=== PATIENT | male | born 1970 | race Caucasian/White ===

== ENCOUNTER 2017-06-16 20:08 | Emergency (ER) | payer OTHER ==
[~2017-06-16] VITALS: Ht 180.3 cm; Wt 90.9 kg
[2017-06-16 20:39] VITALS: BP 129/91; PULSE 73; RESP 18; O2SAT 99
[2017-06-16] MEDS ORDERED: HYDROmorphone 1 mg/mL Inj IM ONE (22:15)
--- NOTE | 2017-06-16 22:32 | ED.REPORT ---
HPI-Back Pain 40 and Over Date of Service Jun 16, 2017 ED Provider: Dr. Carlson The patient is a 46 year old male with a hx of HTN, and cholecystectomy presenting to the ED complaining of left-sided back spasms onset this morning when he was unloading his 90 pound dog from the car. The patient said that he felt a pop and that he initially only felt sore. At 1700 tonight, the patient claims that his back tightened up for 5 minutes but subsided after he stretched and he just felt sore until 1930 when his back tightened up again and remained. The patient admits that he could not walk or stand up, and the pain has been constant since. He says that the pain is a "cramping" pain and is mainly on the left side of his back, below the "edge of the ribs above the hip." The patient denies ever having back pain like this before, fever, nausea, chills, vomiting, or SOB. Nursing Notes Stated Complaint: SEVERE BACK SPASM'S Chief Complaint: Back Pain or Injury Nursing Notes Reviewed: Yes ([employer], [employer] not reconciled) Allergies: Coded Allergies: No Known Allergies (Unverified Allergy, Unknown, 06/16/17) Scheduled PRN Cyclobenzaprine (Cyclobenzaprine) 5 Mg Tablet 5-10 MG PO TID PRN PRN Spasm Hydrocodone-Acetaminophen 5-325 mg (Hydrocodone-Acetaminophen 5-325 mg) 1 Each Tablet 1-2 TABLET PO Q4H PRN PRN For Pain General Time Seen by MD: 22:32 Chief Complaint Flank pain left Hx Obtained From: Patient Arrived By: Walk-in Sudden in Onset?: Yes Onset Occurred: 9 - 12 hours ago Symptom Duration: Since onset Caused by: Bending, Lifting Location: : Flank right Quality: Cramping Associated with: Denies: Fever, Nausea, Vomiting Pertinent Negative: Pt denies other symptoms Recent Healthcare: No recent doctor visit, No recent hospitalization Similar Sx Previous: No Past Medical History Past Medical History Reports: GERD, Hyperlipidemia Past Surgical History Reports: Cholecystectomy Smoking History Unknown if Ever Smoker Ambulatory Status Independent Review of Systems Constitutional: Denies: Chills, Fever Respiratory: Denies: Shortness of breath GI: Denies: Nausea, Vomiting Musculoskeletal: Reports: Lumbar pain Complete sys rev & neg: except as marked. Physical Exam Initial Vital Signs Vital Signs (First) Date Time Temp Pulse Resp B/P Pulse Ox O2 Delivery O2 Flow Rate FiO2 06/16/17 20:39 36.2 73 18 129/91 99 Room Air Initial VS: Reviewed, Vital signs normal Head / Eyes: Atraumatic, Normocephalic, PERRL ENT: Mucous membranes moist, Conjunctiva normal, No scleral icterus Neck: Supple, Non-tender, Full range of motion Lymphatic: No lymphadenopathy Extremities: Vascular intact, Neuro intact, No swelling, No tenderness Skin: Warm, Dry, No cyanosis Psychiatric: Mood/affect normal, Behavior normal, Normal thought content General/Constitutional: Awake, Alert Respiratory / Chest: Breath sounds NL, Breath sounds = bilat, No respiratory distress, No rales, No rhonchi, No wheezing Cardiovascular: Heart rate NL, Regular rhythm, Heart sounds NL, No murmurs, Peripheral circulation NL Abdomen: Soft, Non-tender, No guarding, No rebound, No distention, No palpable mass, No pulsatile mass Back: Atraumatic decreased ROM in back Paralumbar tenderness Neurologic: Oriented X3, Speech NL, No motor deficits, No sensory deficits, Reflexes equal bilat Interpretation & Diagnostics Lab Results Interpretation Test 06/16/17 22:44 Hold Urine Received (Received) Re-Eval/Medical Decision Source of Hx: Old records Re-Evaluation/Progress : Time of Eval: 23:30 Patient Status: Condition improved Re-Evaluation/Progress Note: Patient rechecked. Discussed plan to discharge. Patient understands and agrees with plan. All questions addressed at this time. Counseled Regarding: Diagnosis, Lab results, Need for follow-up, When/why to return to ED Discharge & Departure Impression: Primary Impression: Lumbosacral strain Encounter type: initial encounter Qualified Code: S39.012A - Strain of muscle, fascia and tendon of lower back, initial encounter Disposition: Home Discharge Condition All VS Reviewed: Yes Condition: Improved Additional Instructions: 1. No heavy lifting initially, other activities as tolerated. 2. Symptoms are expected to resolve with time. 3. Take ibuprofen 400-800mg three times a day for pain/soreness. 4. Try the muscle relaxant cyclobenzaprine 5-10mg up to three times a day ( causes drowsiness) 5. IF needed for more severe pain/spasm take hydrocodone/APAP 5/325 1-2 tabs up to three times a day. Note: Use sparingly, this medication contains narcotic and causes drowsiness. No driving for at least 4 hours after taking. Referrals: Yobani Bennett ND (PCP) [facility] Portions of this note were transcribed by Devi Dumas and Jair Sanchez. I, Dr. Carlson personally performed the history, physical exam and medical decision -making; I reviewed and confirmed the accuracy of the information in the transcribed note. Signed by: Erin Esqueda, 06/16/2017 copies to: Yobani Bennett ND, Matthew F MD Jun 16, 2017 22:32 Jun 16, 2017 22:46 DEVI DUMAS Jun 17, 2017 00:08
[2017-06-16] MEDS ORDERED: HYDROmorphone 0.5 mg/0.5 mL iSecure Syringe IM ONE (22:35)
[2017-06-16] MEDS ORDERED: _HYDROcodone/APAP 5-325 mg Tablet PO PRN (23:25)
[2017-06-16] MEDS ORDERED: CYCL5TAB PO (23:29)
[2017-06-16] MEDS ORDERED: HYDR-4003 PO (23:29)
[2017-06-16 23:51] VITALS: BP 124/87; PULSE 78; RESP 16; O2SAT 99
== END 2017-06-16 23:51 | disposition home or self-care (01) ==
LOC: SED 20:08
DX: S39.012A Strain of muscle, fascia and tendon of lower back, initial encounter (principal); X50.0XXA Overexertion from strenuous movement or load, initial encounter; Y93.89 Activity, other specified; Y92.89 Other specified places as the place of occurrence of the external cause; Y99.8 Other external cause status; K21.9 Gastro-esophageal reflux disease without esophagitis; E78.5 Hyperlipidemia, unspecified
CPT/HCPCS: 96372; 99283; J1170